=== PATIENT | female | born 1960 | race Caucasian/White ===

== ENCOUNTER 2017-10-30 08:50 | Emergency (ER) | payer BC, OTHER ==
--- NOTE | 2017-10-30 09:39 | EDPHYS ---
Physician Documentation [facility] Name: Clare Nieves Age: 57 yrs Sex: Female : 1960 Arrival Date: 10/30/2017 Time: 08:54 Bed 19 Private MD: Eliana Valdes ED Physician Alverto Jean HPI: 10/30 09:34 This 57 yrs old Female presents to ER via Ambulatory with complaints of jr8 Finger Injury. 09:34 The patient or guardian reports decreased range of motion, deformity, pain, swelling, jr8 tenderness. The complaints affect the PIP of left ring finger. Onset: The symptoms/episode began/occurred acutely, today. Modifying factors: The symptoms are alleviated by nothing, the symptoms are aggravated by movement. Associated signs and symptoms: The patient has no apparent associated signs or symptoms. Severity of symptoms: At their worst the symptoms were moderate, in the emergency department the symptoms are unchanged. The patient has not experienced similar symptoms in the past. The patient has not recently seen a physician. caught finger in leash while walking dog. Historical: - Allergies: 08:59 No Known Allergies; hj - Home Meds: 08:59 None [Active]; hj - PMHx: 08:59 None; hj - PSHx: 08:59 None; hj - Immunization history:: Adult Immunizations up to date. - Social history:: Smoking status: Patient/guardian denies using tobacco, Patient/guardian denies using alcohol. - Ebola Screening: : Patient negative for fever greater than or equal to 101.5 degrees Fahrenheit, and additional compatible Ebola Virus Disease symptoms Patient denies exposure to infectious person Patient denies travel to an Ebola-affected area in the 21 days before illness onset. ROS: 09:34 Eyes: Negative for injury, pain, redness, and discharge, ENT: Negative for injury, jr8 pain, and discharge, Neck: Negative for injury, pain, and swelling, Cardiovascular: Negative for chest pain, palpitations, and edema, Respiratory: Negative for shortness of breath, cough, wheezing, and pleuritic chest pain, Abdomen/GI: Negative for abdominal pain, nausea, vomiting, diarrhea, and constipation, Back: Negative for injury and pain, Skin: Negative for injury, rash, and discoloration, Neuro: Negative for headache, weakness, numbness, tingling, and seizure. 09:34 MS/extremity: Positive for injury or acute deformity, decreased range of motion, ecchymosis, pain, swelling, tenderness, of the left ring finger. Exam: 09:34 Cardiovascular: Regular rate and rhythm with a normal S1 and S2. No gallops, murmurs, jr8 or rubs. Normal PMI, no JVD. No pulse deficits. Respiratory: Lungs have equal breath sounds bilaterally, clear to auscultation and percussion. No rales, rhonchi or wheezes noted. No increased work of breathing, no retractions or nasal flaring. Skin: Warm, dry with normal turgor. Normal color with no rashes, no lesions, and no evidence of cellulitis. Neuro: Awake and alert, GCS 15, oriented to person, place, time, and situation. Cranial nerves II-XII grossly intact. Motor strength 5/5 in all extremities. Sensory grossly intact. Cerebellar exam normal. Normal gait. 09:34 Musculoskeletal/extremity: Extremities: grossly normal except: noted in the left ring finger: decreased ROM, deformity, ecchymosis, pain, swelling, tenderness, ROM: limited active range of motion, limited passive range of motion, limited active range of motion due to pain, limited passive range of motion due to pain, Circulation is intact in all extremities. Sensation intact. Vital Signs: 09:01 Weight 54.43 kg; Height 5 ft. 1 in. (154.94 cm); Pain 3/10; hj 09:02 BP 138 / 75; Pulse 60; Resp 14; Temp 97.8(O); Pulse Ox 98% on R/A; mh5 09:01 Body Mass Index 22.67 (54.43 kg, 154.94 cm) Procedures: 09:34 Splinting: Splint applied to left ring finger using finger splint, Orthoglass splint, jr8 applied by myself. tech. Examined by me, post splint application: neurovascular intact, 2+ distal pulses palpable, brisk capillary refill noted, Patient tolerated well. MDM: 09:11 Patient medically screened. jr8 09:34 Data reviewed: vital signs, nurses notes, radiologic studies, plain films, and as a jr8 result, I will discharge patient. Data interpreted: Pulse oximetry: on room air is 98 %. Interpretation: normal. Counseling: I had a detailed discussion with the patient and/or guardian regarding: the historical points, exam findings, and any diagnostic results supporting the discharge/admit diagnosis, radiology results, the need for outpatient follow up, a hand specialist, to return to the emergency department if symptoms worsen or persist or if there are any questions or concerns that arise at home. Response to treatment: the patient's symptoms have markedly improved after treatment. 10/30 09:02 Order name: XRAY Hand LEFT 3 View 10/30 09:48 Order name: Splint - Ulnar Gutter; Complete Time: 09:49 5 Administered Medications: No medications were administered Disposition: 11:53 Co-signature as Attending Physician, Alverto Jean MD I agree with the assessment and kdr plan of care. Disposition: 10/30/17 09:38 Discharged to Home. Impression: Displaced fracture of proximal phalanx of left ring finger. - Condition is Stable. - Discharge Instructions: Finger Fracture. - Prescriptions for Ibuprofen 800 mg Oral Tablet - take 1 tablet by ORAL route every 12 hours As needed take with food; 20 tablet. Tylenol- Codeine #3 300-30 mg Oral Tablet - take 2 tablet by ORAL route every 6 hours As needed; 30 tablet. - Medication Reconciliation Form, Thank You Letter, Antibiotic Education, Prescription Opioid Use form. - Follow up: Tino Moffett MD; When: 2 - 3 days; Reason: Recheck today's complaints, Continuance of care, Re-evaluation by your physician. - Problem is new. - Symptoms have improved. Signatures: Dispatcher [employer] EDNY Alverto Jean MD MD kdr Smirch, Shelby, RN RN Levi Schulte PA PA jrJuan Olsen RN RN Liz Alegre [facility] Corrections: (The following items were deleted from the chart) 09:50 09:38 10/30/2017 09:38 Discharged to Home. Impression: Displaced fracture of proximal ss phalanx of left ring finger. Condition is Stable. Forms are Medication Reconciliation Form, Thank You Letter, Antibiotic Education, Prescription Opioid Use. Follow up: Tino Moffett; When: 2 - 3 days; Reason: Recheck today's complaints, Continuance of care, Re-evaluation by your physician. Problem is new. Symptoms have improved. jr8
--- NOTE | 2017-10-30 09:39 | ER ---
Nurse's Notes [facility] Name: Clare Nieves Age: 57 yrs Sex: Female : 1960 Arrival Date: 10/30/2017 Time: 08:54 Bed 19 Private MD: Eliana Valdes Diagnosis: Displaced fracture of proximal phalanx of left ring finger Presentation: 10/30 08:57 Presenting complaint: Patient states: i was walking my dog this AM and my L ring finger hj got caught my the leash and I think its now broken, pain 2-3; denies fall; denies numbness and tingling;. Transition of care: patient was not received from another setting of care. Onset of symptoms was October 30, 2017. Risk Assessment: Do you want to hurt yourself or someone else? Patient reports no desire to harm self or others. Initial Sepsis Screen: Does the patient meet any 2 criteria? No. Patient's initial sepsis screen is negative. Does the patient have a suspected source of infection? No. Patient's initial sepsis screen is negative. Care prior to arrival: None. 08:57 Method Of Arrival: Ambulatory 08:57 Acuity: MARCK 4 hj Triage Assessment: 08:59 General: Appears in no apparent distress. uncomfortable, Behavior is calm, cooperative, hj appropriate for age. Pain: Complains of pain in left hand. Musculoskeletal: Range of motion: limited in DIP of left ring finger and PIP of left ring finger. Injury Description: Crush injury. Historical: - Allergies: 08:59 No Known Allergies; hj - Home Meds: 08:59 None [Active]; hj - PMHx: 08:59 None; hj - PSHx: 08:59 None; hj - Immunization history:: Adult Immunizations up to date. - Social history:: Smoking status: Patient/guardian denies using tobacco, Patient/guardian denies using alcohol. - Ebola Screening: : Patient negative for fever greater than or equal to 101.5 degrees Fahrenheit, and additional compatible Ebola Virus Disease symptoms Patient denies exposure to infectious person Patient denies travel to an Ebola-affected area in the 21 days before illness onset. Screenin:00 Abuse screen: Denies threats or abuse. Denies injuries from another. Nutritional hj screening: No deficits noted. Tuberculosis screening: No symptoms or risk factors identified. Fall Risk None identified. Assessment: 09:01 Reassessment: see triage assessment;. hj Vital Signs: 09:01 Weight 54.43 kg; Height 5 ft. 1 in. (154.94 cm); Pain 3/10; hj 09:02 BP 138 / 75; Pulse 60; Resp 14; Temp 97.8(O); Pulse Ox 98% on R/A; mh5 09:01 Body Mass Index 22.67 (54.43 kg, 154.94 cm) ED Course: 08:54 Patient arrived in ED. rg4 08:54 Eliana Valdes MD is Private Physician. rg4 08:57 Juan Albarado, DEA is Primary Nurse. hj 08:59 Triage completed. hj 09:00 Arm band placed on right wrist. hj 09:01 Patient has correct armband on for positive identification. Bed in low position. Call hj light in reach. Side rails up X 1. 09:11 [facility] Ford [facility]. jr8 09:11 Alverto Jean MD is Attending Physician. jr8 09:17 X-ray completed. Portable x-ray completed in exam room. Patient tolerated procedure jb2 well. 09:18 XRAY Hand LEFT 3 View In Process Unspecified. EDMS 09:37 Tino Moffett MD is Referral Physician. jr8 09:49 No provider procedures requiring assistance completed. Patient did not have IV access ss during this emergency room visit. 09:49 Orthoglass splint: Ulnar gutter/Boxer splint applied on. mh5 Administered Medications: No medications were administered Outcome: 09:38 Discharge ordered by . jr8 09:49 Discharged to home ambulatory, with splint ss 09:49 Condition: stable 09:49 Discharge instructions given to patient, Instructed on discharge instructions, follow up and referral plans. medication usage, Demonstrated understanding of instructions, follow-up care, medications, Prescriptions given X 2. 09:50 Patient left the ED. ss Signatures: Dispatcher [employer] EDMS Jin De Santiago jb2 Miladys Dockery RN RN Levi Ford PA PA jr8 Juan Albraado, Annabel Howard RN rg4 Liz Alegre [facility]
--- NOTE | 2017-10-30 09:51 | RAD REPORT ---
EXAM DESCRIPTION: RAD - Hand Left 3 View - 10/30/2017 9:18 am CLINICAL HISTORY: Pain;Deformity COMPARISON: No comparisons FINDINGS: Oblique mildly to moderately displaced fracture involves the proximal phalanx of the fourt h finger with surrounding soft tissue swelling. No dislocation is seen.
== END 2017-10-30 09:50 | disposition home or self-care (01) ==
LOC: ER 08:50
PROC: 2W3CX1Z Immobilization of Right Lower Arm using Splint (ICD-10-PCS; principal; 2017-10-30)
DX: S62.615A Displaced fracture of proximal phalanx of left ring finger, initial encounter for closed fracture (principal); W23.0XXA Caught, crushed, jammed, or pinched between moving objects, initial encounter; Y93.89 Activity, other specified; Y92.9 Unspecified place or not applicable; Y99.9 Unspecified external cause status
CPT/HCPCS: 99283

== ENCOUNTER 2017-11-04 09:59 | Day surgery (SDC) | payer BC ==
[2017-11-03 11:47] LABS: Urine Appearance CLEAR; Urine Bilirubin NEGATIVE (NEG); Urine Blood NEGATIVE (NEG); Urine Color YELLOW; Urine Glucose NEGATIVE (NEG); Urine Protein NEGATIVE (NEG); Urine Specific Gravity 1.015 (1.005-1.030); Urine Urobilinogen 0.2 mg/dL (0.2-1.0)
[2017-11-03 11:49] LABS: Urine Microscopic Reflex NO UMIC
--- NOTE | 2017-11-03 11:50 | RAD REPORT ---
EXAM DESCRIPTION: RAD - Chest Pa And Lat (2 Views) - 11/03/2017 11:23 am CLINICAL HISTORY: Pain in hand Chest pain. COMPARISON: No comparisons FINDINGS: The lungs are clear. The heart is normal in size. No displaced fractures. IMPRESSION: No acute or concerning finding suspected.
[2017-11-03 11:59] LABS: Potassium 4.3 mmol/L (3.5-5.1)
--- NOTE | 2017-11-03 14:01 | EKG ---
Test Date: 2017-11-03 Test Time: 10:53:35 Campus Rep: MARIA ISABEL MEASUREMENT RESULTS: Intervals: Rate: 50 MO: 150 QRSD: 78 QT: 422 QTc: 384 [place]: P: 54 MO: 150 QRS: 25 T: 44 INTERPRETIVE STATEMENTS: Sinus bradycardia Otherwise normal ECG No previous ECG available for comparison Electronically Signed On 11-03-17 14:00:15 CDT by Victorino Starr
[2017-11-04] MEDS ORDERED: CEFAZOLIN/SWI 1gm 1 GM/10 ML SYR ONE (10:13)
[2017-11-04] MEDS ORDERED: Ringers Lactate 1,000 ML IV ONE (10:13)
[2017-11-04] MEDS ORDERED: PROPOFOL 200 MG/20 ML VIAL IV ONE (11:09)
[2017-11-04] MEDS ORDERED: FENTANYL CITR 100 MCG/2 ML ONE (11:10)
[2017-11-04] MEDS ORDERED: LIDOCAINE 2% MPF 5 ML VIAL ONE (11:10)
--- NOTE | 2017-11-04 12:46 | RAD REPORT ---
EXAM DESCRIPTION: RAD - Hand Left 2 View - 11/04/2017 12:35 pm CLINICAL HISTORY: ORIF LT RING FINGER COMPARISON: None. FINDINGS: Portable C-arm views were obtained during fluoroscopic assisted fracture fixation. A total of 7 C-arm views were submitted. Fluoro time was 0.3 minutes. Cumulative dose was 0.133 mGy. Portabl e fluoroscopic images show placement of hardware. No suspicious or unexpected finding. IMPRESSION: Fluoroscopic assisted fracture fixation as detailed.
[2017-11-04] MEDS: MEPERIDINE HCL 50 MG/ML AMP ONE ×4 (12:54→13:12)
[2017-11-04] MEDS ORDERED: CODEINE 30MG/APAP 300MG TAB ONE (13:55)
--- NOTE | 2017-11-04 22:53 | OP ---
Surgeon: Tino Moffett MD Correctional Officer Lieutenant: Viraj. Preoperative Diagnosis: Fracture of the left ring finger, proximal phalanx. Postoperative Diagnosis: Fracture of the left ring finger, proximal phalanx. Procedure Performed: Open reduction and internal fixation, splint. Anesthesia: General. Procedure In Detail: After satisfactory induction of general anesthesia, left arm was prepped with B etadine scrub, Betadine paint, and dry sterile drapes were applied in the usual manner. Arm was elev ated and exsanguinated with an Esmarch. Tourniquet was inflated to 250 mmHg. The hand was placed on a [place] table. A curvilinear incision was made with the concave scissors ulnar over the proximal phalanx. The flaps were elevated from ulnar to radial and from volar to dorsal. The extensor tendon was retracted radial as well and past opened and dissected down to the fascia. A scalpel was used t o elevate the soft tissue. The fracture was readily identified, it is a trauma fracture and then it was reduced with a bone reduction clamp and then a drill hole was made using a 1.5 drill and 1.3 dril l, and then a 1.5 screw was placed. C-arm revealed excellent reduction. Second one was then placed, first with a 1.3, this was insufficient and then we drilled out again using 1.5 screw. Both screws were 1.5, 8 mm long, and it was countersunk. The wound was then irrigated and the soft tissue and pe riosteum was closed with 5-0 Vicryl. Tourniquet was released. Electrocautery was used for hemostasi s. Wound was closed with 4-0 Prolene vertical mattress and dressed with Xeroform, 2 inch Lizbet, Kerl ix, and a splint holding wrist in 10 degrees of dorsiflexion, MCP 90, PIP and DIP 0. The patient tolerated the procedure well. JIMY/ALMA Voice ID: [id number] Report ID: [id number]
== END 2017-11-04 15:30 | disposition home or self-care (01) ==
LOC: OR 09:59
PROVIDERS: ATTEND Specialist
PROC: 0PSV04Z Reposition Left Finger Phalanx with Internal Fixation Device, Open Approach (ICD-10-PCS; principal; 2017-11-04 11:00)
DX: S62.615A Displaced fracture of proximal phalanx of left ring finger, initial encounter for closed fracture (principal); X58.XXXA Exposure to other specified factors, initial encounter; Y93.9 Activity, unspecified; Y92.9 Unspecified place or not applicable
CPT/HCPCS: 36415; 71046; 80048; 81003; 93005; J0690; J2175; J3010

== ENCOUNTER 2018-06-26 08:20 | Emergency (ER) | payer BC ==
--- OUTSIDE RECORDS SUMMARY | 2018-06-26 08:21 | XMS REPORT | Clinical Summary ---
:1960 Author Organization [facility] Address [address] [place] [address] Care Team Providers Name Role Phone Asked, No Pcp Primary Care Provider Unavailable Allergies Not on File Medications Not on file Active Problems Not on file Encounters Date Type Specialty Care Team Description 11/06/2017 Transcribe Orders Physical Therapy Tino Moffett Spiral fracture of MD Jake upper extremity (Primary Dx) after 06/25/2017 Social History Tobacco Use Types Packs/Day Years Used Date Never Assessed Sex Assigned at Date Recorded Not on file Job Start Date Occupation Industry Not on file Not on file Not on file Travel History Travel Start Travel End No recent travel history available. Last Filed Vital Signs Not on file Plan of Treatment Health Maintenance Due Date Last Done Comments CERVICAL CANCER SCREENING 1979 BREAST CANCER SCREENING 2008 COLON CANCER SCREENING 2008 SHINGLES VACCINES (#1) 2008 INFLUENZA VACCINE 11/05/2017 Results Not on fileafter 06/25/2017 Insurance Payer Benefit Plan / Group Subscriber ID Type Phone Address [employer] xxxxxxxxxxxx HMO Advance Directives Patient has advance care planning documents on file. For more information, please contact:[facility] [place] [address]
[2018-06-26] MEDS ORDERED: IBUPROFEN 400 MG TAB ONE (09:18)
--- NOTE | 2018-06-26 09:45 | RAD REPORT ---
EXAM DESCRIPTION: RAD - Hand Left 3 View - 06/26/2018 9:12 am CLINICAL HISTORY: Left hand pain following trauma, pain primarily third and fourth digits COMPARISON: October 2017 FINDINGS: No fracture, dislocation or periosteal reaction noted. Two small bone screws are present i n the fourth proximal phalanx, intact. IP joint space narrowing is present. No erosive changes identi fied. MCP joints are spared any significant degenerative change. Degenerative change involves the sca phoid trapezium and trapezium first metacarpal articulations. Slight narrowing of the radiocarpal brandie nt space noted. No acute carpal bone finding. Soft tissue swelling surrounds the proximal third and fourth digits. No foreign body in the soft tiss ues. IMPRESSION: Left hand degenerative changes and postsurgical changes are present as detailed. Soft tissue swelling around the proximal third and fourth digits. No fracture or acute bone finding.
--- NOTE | 2018-06-26 09:49 | ER ---
Nurse's Notes [facility] Name: Clare Nieves Age: 58 yrs Sex: Female : 1960 Arrival Date: 06/26/2018 Time: 08:21 Bed 11 Private MD: Eliana Valdes Diagnosis: Dislocation of proximal interphalangeal joint of left middle finger Presentation: 06/26 08:47 Presenting complaint: Patient states: thinks she broke middle finger of left hand, pt iw was walking dog this morning and the leash pulled her finger, bruising and swelling present. Transition of care: patient was not received from another setting of care. Onset of symptoms was June 26, 2018. Risk Assessment: Do you want to hurt yourself or someone else? Patient reports no desire to harm self or others. Initial Sepsis Screen: Does the patient meet any 2 criteria? No. Patient's initial sepsis screen is negative. Does the patient have a suspected source of infection? No. Patient's initial sepsis screen is negative. Care prior to arrival: None. 08:47 Method Of Arrival: Ambulatory iw 08:47 Acuity: MARCK 4 iw Triage Assessment: 09:40 General: Appears in no apparent distress. Injury Description: Deformity sustained to iw PIP of left middle finger. Historical: - Allergies: 08:48 No Known Allergies; iw - Home Meds: 08:48 None [Active]; iw - PMHx: 08:48 None; iw - PSHx: 08:48 None; iw - Immunization history:: Adult Immunizations not up to date. - Social history:: Smoking status: Patient/guardian denies using tobacco. - Ebola Screening: : Patient negative for fever greater than or equal to 101.5 degrees Fahrenheit, and additional compatible Ebola Virus Disease symptoms Patient denies exposure to infectious person Patient denies travel to an Ebola-affected area in the 21 days before illness onset No symptoms or risks identified at this time. Screenin:09 Abuse screen: Denies threats or abuse. Denies injuries from another. Nutritional iw screening: No deficits noted. Tuberculosis screening: No symptoms or risk factors identified. Fall Risk None identified. Assessment: 09:09 General: Appears uncomfortable, Behavior is cooperative. Pain: Complains of pain in iw dorsal aspect of middle phalanx of left middle finger and dorsal aspect of proximal phalanx of left middle finger Pain currently is 10 out of 10 on a pain scale. Neuro: Level of Consciousness is awake, alert, obeys commands, Moves all extremities. Full function. Cardiovascular: Patient's skin is warm and dry. Respiratory: Airway is patent Trachea Respiratory effort is even, unlabored. Derm: Skin is intact, is healthy with good turgor. Musculoskeletal: Range of motion: limited in PIP of left middle finger. Vital Signs: 08:48 BP 153 / 88; Pulse 54; Resp 16; Temp 98.3; Pulse Ox 100% on R/A; Pain 10/10; iw ED Course: 08:21 Patient arrived in ED. rg4 08:21 Eliana Valdes MD is Private Physician. rg4 08:43 Susan Orozco, RN is Primary Nurse. iw 08:48 Triage completed. iw 08:49 Arm band placed on. iw 08:50 Aleaxnder Rashid NP is PHCP. pm1 08:51 Qasim Alexis MD is Attending Physician. pm1 09:09 X-ray completed. Portable x-ray completed in exam room. Patient tolerated procedure sw well. 09:10 Hand Left 3 View XRAY In Process Unspecified. EDMS 09:10 Patient has correct armband on for positive identification. iw 09:10 No provider procedures requiring assistance completed. Patient did not have IV access iw during this emergency room visit. 09:48 Tino Moffett MD is Referral Physician. pm1 Administered Medications: 09:12 Drug: Ibuprofen 600 mg Route: PO; dm5 09:50 Follow up: Response: No adverse reaction; Pain is decreased iw Outcome: 09:48 Discharge ordered by MD. pm1 09:55 Discharged to home ambulatory. iw 09:55 Condition: good 09:55 Discharge instructions given to patient, Instructed on discharge instructions, follow up and referral plans. medication usage, Demonstrated understanding of instructions, follow-up care, medications, Prescriptions given X 1. 09:56 Patient left the ED. iw Signatures: Dispatcher [employer] EDMS Delfina Oseguera, DEA RN dm5 Susan Orozco RN RN iw Mell Davis Alexander Rashid NP [employer] pm1 Annabel Alatorre rg4
--- NOTE | 2018-06-26 09:49 | EDPHYS ---
Physician Documentation [facility] Name: Clare Nieves Age: 58 yrs Sex: Female : 1960 Arrival Date: 06/26/2018 Time: 08:21 Bed 11 Private MD: Eliana Valdes ED Physician Qasim Alexis HPI: 06/26 09:25 This 58 yrs old Female presents to ER via Ambulatory with complaints of Left pm1 Middle Finger Injury. 09:25 The patient or guardian reports decreased range of motion, pain. The complaints affect pm1 the PIP of left middle finger. Context: The problem was sustained outdoors, resulted from dog pulled on leash and pulled on left middle finger. Onset: The symptoms/episode began/occurred just prior to arrival. Modifying factors: The symptoms are alleviated by nothing, the symptoms are aggravated by nothing. Associated signs and symptoms: Pertinent negatives: cyanosis distally, decreased sensation distally, numbness distally, tingling distally. Severity of symptoms: in the emergency department the symptoms are unchanged. The patient has not experienced similar symptoms in the past. The patient has not recently seen a physician. Patient was walking the dog with her left hand and the dog chased after a squirrel. Leash pulled on left middle finger. Patient was able to move finger full range of motion and then it got stuck in 90 degree flexed. Historical: - Allergies: 08:48 No Known Allergies; iw - Home Meds: 08:48 None [Active]; iw - PMHx: 08:48 None; iw - PSHx: 08:48 None; iw - Immunization history:: Adult Immunizations not up to date. - Social history:: Smoking status: Patient/guardian denies using tobacco. - Ebola Screening: : Patient negative for fever greater than or equal to 101.5 degrees Fahrenheit, and additional compatible Ebola Virus Disease symptoms Patient denies exposure to infectious person Patient denies travel to an Ebola-affected area in the 21 days before illness onset No symptoms or risks identified at this time. ROS: 09:25 Constitutional: Negative for fever, chills, and weight loss, Eyes: Negative for injury, pm1 pain, redness, and discharge, ENT: Negative for injury, pain, and discharge, Neck: Negative for injury, pain, and swelling, Cardiovascular: Negative for chest pain, palpitations, and edema, Respiratory: Negative for shortness of breath, cough, wheezing, and pleuritic chest pain, Abdomen/GI: Negative for abdominal pain, nausea, vomiting, diarrhea, and constipation, Back: Negative for injury and pain, : Negative for injury, bleeding, discharge, and swelling. 09:25 Skin: Negative for injury, rash, and discoloration, Neuro: Negative for headache, weakness, numbness, tingling, and seizure. 09:25 MS/extremity: Positive for decreased range of motion, pain, of the PIP of left middle finger. Exam: 09:25 Constitutional: This is a well developed, well nourished patient who is awake, alert, pm1 and in no acute distress. Head/Face: Normocephalic, atraumatic. Eyes: Pupils equal round and reactive to light, extra-ocular motions intact. Lids and lashes normal. Conjunctiva and sclera are non-icteric and not injected. Cornea within normal limits. Periorbital areas with no swelling, redness, or edema. ENT: Nares patent. No nasal discharge, no septal abnormalities noted. Tympanic membranes are normal and external auditory canals are clear. Oropharynx with no redness, swelling, or masses, exudates, or evidence of obstruction, uvula midline. Mucous membranes moist. Neck: Trachea midline, no thyromegaly or masses palpated, and no cervical lymphadenopathy. Supple, full range of motion without nuchal rigidity, or vertebral point tenderness. No Meningismus. Chest/axilla: Normal chest wall appearance and motion. Nontender with no deformity. No lesions are appreciated. Cardiovascular: Regular rate and rhythm with a normal S1 and S2. No gallops, murmurs, or rubs. No pulse deficits. Respiratory: Lungs have equal breath sounds bilaterally, clear to auscultation and percussion. No rales, rhonchi or wheezes noted. No increased work of breathing, no retractions or nasal flaring. Abdomen/GI: Soft, non-tender, with normal bowel sounds. No distension or tympany. No guarding or rebound. No evidence of tenderness throughout. Back: No spinal tenderness. No costovertebral tenderness. Full range of motion. Skin: Warm, dry with normal turgor. Normal color with no rashes, no lesions, and no evidence of cellulitis. 09:25 Musculoskeletal/extremity: Extremities: grossly normal except: noted in the left hand and PIP of left middle finger: decreased ROM, obvious dislocation. Vital Signs: 08:48 BP 153 / 88; Pulse 54; Resp 16; Temp 98.3; Pulse Ox 100% on R/A; Pain 10/10; iw Procedures: 09:25 Reduction: of the PIP of left middle finger, using traction, Immobilized with finger pm1 splint, Patient tolerated well. MDM: 08:51 Patient medically screened. pm1 08:54 Data reviewed: vital signs. Data interpreted: Pulse oximetry: on room air is 100 %. pm1 Interpretation: normal. 09:48 Counseling: I had a detailed discussion with the patient and/or guardian regarding: the pm1 historical points, exam findings, and any diagnostic results supporting the discharge/admit diagnosis, radiology results, the need for outpatient follow up, to return to the emergency department if symptoms worsen or persist or if there are any questions or concerns that arise at home. 06/26 08:51 Order name: Hand Left 3 View XRAY; Complete Time: 09:48 pm1 06/26 08:54 Order name: Finger Splint; Complete Time: 09:21 pm1 Administered Medications: 09:12 Drug: Ibuprofen 600 mg Route: PO; dm5 09:50 Follow up: Response: No adverse reaction; Pain is decreased iw Disposition: 12:37 Co-signature as Attending Physician, Qasim Alexis MD I agree with the assessment and oliva plan of care. Disposition: 06/26/18 09:48 Discharged to Home. Impression: Dislocation of proximal interphalangeal joint of left middle finger. - Condition is Stable. - Discharge Instructions: Cast or Splint Care, Adult, Finger or Thumb Dislocation. - Prescriptions for Tramadol 50 mg Oral Tablet - take 1 tablet by ORAL route every 8 hours as needed; 12 tablet. - Medication Reconciliation Form, Thank You Letter, Antibiotic Education, Prescription Opioid Use form. - Follow up: Emergency Department; When: As needed; Reason: Worsening of condition. Follow up: [facility]; When: 2 - 3 days; Reason: Recheck today's complaints, Continuance of care, Re-evaluation by your physician. - Problem is new. - Symptoms have improved. Signatures: Dispatcher [employer] Delfina Parisi, DEA MALIN dm5 Qasim Alexis MD MD cha Williams, Irene, DEA RN Alexander Yadav, JUANIS DEVELOPMENT EDITOR pm1 Corrections: (The following items were deleted from the chart) 09:56 09:48 06/26/2018 09:48 Discharged to Home. Impression: Dislocation of proximal iw interphalangeal joint of left middle finger. Condition is Stable. Forms are Medication Reconciliation Form, Thank You Letter, Antibiotic Education, Prescription Opioid Use. Follow up: Emergency Department; When: As needed; Reason: Worsening of condition. Follow up: [facility]; When: 2 - 3 days; Reason: Recheck today's complaints, Continuance of care, Re-evaluation by your physician. Problem is new. Symptoms have improved. pm1
== END 2018-06-26 09:56 | disposition home or self-care (01) ==
LOC: ER 08:20
DX: S63.283A Dislocation of proximal interphalangeal joint of left middle finger, initial encounter (principal); X50.9XXA Other and unspecified overexertion or strenuous movements or postures, initial encounter; Y93.K1 Activity, walking an animal
CPT/HCPCS: 99283